=== PATIENT | male | born 1965 | race Caucasian/White ===

== ENCOUNTER 2017-02-08 09:48 | Emergency (ER) | payer OTHER ==
[2017-02-08 10:12] VITALS: TEMP 98.2; BMI 24.2
--- NOTE | 2017-02-08 10:22 | PDOC ---
History of Present Illness - General Chief Complaint: Headache Stated Complaint: HEAD PRESSURE Time Seen by Provider: 02/08/17 10:22 - History of Present Illness Initial Comments: 52 year old male with history of sinusitis presenting with rhinorrhea, cough, congestion, occipital headache and general lethargy for the past few days. He has no other medical problems and tried nyquil without relief. Denies fevers, chills, nausea, vomiting, diarrhea, urinary symptoms, or other issues. 02/08/17 10:38 Past History - Past Medical History Allergies/Adverse Reactions: Allergies Allergy/AdvReac Type Severity Reaction Status Date / Time No Known Allergies Allergy Verified 02/08/17 10:08 Home Medications: Ambulatory Orders NK [No Known Home Medication] 02/08/17 Other medical history: none - Suicide/Smoking/Psychosocial Hx Smoking History: Never smoked Have you smoked in the past 12 months: No Number of Cigarettes Smoked Daily: 3 Information on smoking cessation initiated: No 'Breaking Loose' booklet given: 03/01/14 Hx Alcohol Use: No Drug/Substance Use Hx: No Substance Use Type: None Review of Systems - Review of Systems Constitutional: No: Chills, Diaphoresis, Fever HEENTM: No: Blurred Vision, Recent change in vision Respiratory: Yes: Cough, Productive cough. No: Shortness of Breath, Wheezing Cardiac (ROS): No: Chest Pain, Irregular Heart Rate, Palpitations, Syncope ABD/GI: No: Constipated, Diarrhea, Nausea, Vomiting : No: Burning, Dysuria, Discharge, Frequency Integumentary: No: Bruising, Change in Color Neurological: Yes: Headache. No: Numbness *Physical Exam - Vital Signs Last Vital Signs Temp Pulse Resp BP Pulse Ox 98.2 F 71 18 131/82 100 02/08/17 10:02/08/17 10:09 02/08/17 10:02/08/17 10:02/08/17 10:09 - Physical Exam General Appearance: Yes: Nourished, Appropriately Dressed. No: Apparent Distress HEENT: positive: EOMI, RUBI, Normal Voice, Pharyngeal Erythema, Other (Sinus tenderness) Neck: positive: Tender, Trachea midline, Normal Thyroid, Supple. negative: Rigid Respiratory/Chest: positive: Chest Tender, Lungs Clear, Normal Breath Sounds. negative: Respiratory Distress, Accessory Muscle Use Cardiovascular: positive: Regular Rhythm, Regular Rate, S1, S2. negative: Edema , JVD, Murmur Gastrointestinal/Abdominal: positive: Normal Bowel Sounds, Flat, Soft. negative : Tender Musculoskeletal: positive: Normal Inspection Extremity: positive: Normal Inspection, Normal Range of Motion Integumentary: positive: Normal Color, Dry, Warm Neurologic: positive: Fully Oriented, Alert, Normal Mood/Affect Medical Decision Making - Medical Decision Making 52 year old male with upper respiratory symptoms. bBlood glucose WNL and patient's symptoms much better after 1 G tylenol PO. This is most likely a sinus traction headache secondary to a viral URI. Has no neurolgic signs or past medical history to suggest more concerning etiology. Will DC home. 02/08/17 11:56 02/08/17 11:57 *DC/Admit/Observation/Transfer Diagnosis at time of Disposition: Upper respiratory tract infection, Headache - Discharge Dispostion Disposition: HOME Admit: No - Patient Instructions Printed Discharge Instructions: DI for Viral Upper Respiratory Infection -- Adult, DI for Common Cold Additional Instructions: You were seen for headache, cough, and generally not feeling well for the last few days. We gave you a large dose of Tylenol and your symptoms improved. We believe you have a common cold. Please rest, eat food, and hydrate.
--- NOTE | 2017-02-08 10:25 | PDOC ---
Attending Attestation - Resident Resident Name: Gwendolyn Vega - ED Attending Attestation I have performed the following: I have examined & evaluated the patient, The case was reviewed & discussed with the resident, I agree w/resident's findings & plan, Exceptions are as noted - HPI HPI: 02/08/17 10:23 Headache - Physicial Exam PE: 02/08/17 10:23 Neurologically Intact/ NAD - Medical Decision Making 02/08/17 10:[address] Gwendolyn Vega's Assessment and Plan
[2017-02-08] MEDS ORDERED: ACETAMINOPHEN 500 MG TABLET (FP) PO ONE (10:43)
[2017-02-08] MEDS ORDERED: ACETAMINOPHEN 325 MG TABLET (FP) ONE (10:51)
[2017-02-08 12:15] VITALS: BP 126/72; PULSE 68
--- NOTE | 2017-02-08 13:50 | EKG ---
Test Reason : Blood Pressure : / mmHG Vent. Rate : 068 BPM Atrial Rate : 068 BPM P-R Int : 126 ms QRS Dur : 090 ms QT Int : 388 ms P-R-T Axes : 043 023 034 degrees QTc Int : 412 ms NORMAL SINUS RHYTHM NORMAL ECG WHEN COMPARED WITH ECG OF 12-OCT-2015 02:00, VENT. RATE HAS DECREASED BY 44 BPM Confirmed by ANDREINA LEMUS MD ([id number]) on 02/08/2017 1:50:30 PM Referred By: Confirmed By:ANDREINA LEMUS MD
== END 2017-02-08 12:13 | disposition home or self-care (01) ==
LOC: JER 09:48
DX: J06.9 Acute upper respiratory infection, unspecified (principal); R51 Headache
CPT/HCPCS: 93005; 93010; 99283-25

== ENCOUNTER 2017-10-13 15:30 | Emergency (ER) | payer OTHER ==
[2017-10-13 15:45] VITALS: BP 119/83; PULSE 99; TEMP 98.3; BMI 25.0
--- NOTE | 2017-10-13 15:46 | PDOC ---
Rapid Medical Evaluation Time Seen by Provider: 10/13/17 15:43 Medical Evaluation: Allergies Allergy/AdvReac Type Severity Reaction Status Date / Time No Known Allergies Allergy Verified 02/08/17 10:08 10/13/17 15:43 I have performed a brief in-person evaluation of this patient. The patient presents with a chief complaint of: RUE pain, no recent trauma but pulled something "heavy" 2 days ago. Took alleve w/ minimal relieve. No cp or sob. H/o HLD Pertinent physical exam findings:+ttp to R forearm w/ palpation. +pain w/ ROM of RUE I have ordered the following:nothing The patient will proceed to the ED for further evaluation. Discharge Disposition - Diagnosis Arm pain Qualifiers: Laterality: right Qualified Code(s): M79.601 - Pain in right arm - Referrals - Patient Instructions - Post Discharge Activity
--- NOTE | 2017-10-13 16:39 | PDOC ---
History of Present Illness - General Chief Complaint: Pain, Acute Stated Complaint: RT SHOULDER PAIN Time Seen by Provider: 10/13/17 15:43 - History of Present Illness Initial Comments: 52-year-old male presents for evaluation of right shoulder and neck pain 1 day. He describes this pain as achy and sharp exacerbated with motion relieved with rest with radiation down to his right arm. No prior problems with the neck or shoulder in the past. No comorbidities NO KNOWN DRUG ALLERGIES. 10/13/17 16:34 Past History - Past Medical History Allergies/Adverse Reactions: Allergies Allergy/AdvReac Type Severity Reaction Status Date / Time No Known Allergies Allergy Verified 10/13/17 15:45 Home Medications: Ambulatory Orders Cyclobenzaprine HCl [Flexeril 10 mg] 10 mg PO HS PRN #10 tablet 10/13/17 Methylprednisolone [Medrol Dose Checo] 4 mg PO ASDIR #21 tablet 10/13/17 COPD: No Hypercholesterolemia: Yes - Immunization History Immunization Up to Date: Yes - Suicide/Smoking/Psychosocial Hx Smoking History: Never smoked Have you smoked in the past 12 months: No Number of Cigarettes Smoked Daily: 3 Information on smoking cessation initiated: No 'Breaking Loose' booklet given: 03/01/14 Hx Alcohol Use: No Drug/Substance Use Hx: No Substance Use Type: None Review of Systems - Review of Systems Musculoskeletal: Yes: Joint Pain, Neck Pain All Other Systems: Reviewed and Negative *Physical Exam - Vital Signs Last Vital Signs Temp Pulse Resp BP Pulse Ox 98.3 F 99 H 20 119/83 99 10/13/17 15:37 10/13/17 15:37 10/13/17 15:37 10/13/17 15:37 10/13/17 15:37 - Physical Exam Comments: Right shoulder skin color and temperature within normal limits there is no tenderness. Range of motion is slightly limited with pain terminal ranges of external rotation and abduction. He is unable to tolerate impingement maneuvers are rotator cuff strength testing. Bilateral upper extremities is 5 out of 5 strength in thumb extension wrist flexion and extension. As well as bicep. Upper extremity compartments are soft and nontender. Spurling maneuver is positive on the left. No gross sensorimotor deficits. He is neurovascularly intact. 10/13/17 16:35 *DC/Admit/Observation/Transfer Diagnosis at time of Disposition: Cervical radiculitis, Shoulder impingement syndrome Arm pain Qualifiers: Laterality: right Qualified Code(s): M79.601 - Pain in right arm - Discharge Dispostion Disposition: HOME Condition at time of disposition: Stable - Prescriptions Prescriptions: Cyclobenzaprine HCl [Flexeril 10 mg] 10 mg PO HS PRN #10 tablet PRN Reason: Muscle Spasms Methylprednisolone [Medrol Dose Checo] 4 mg PO ASDIR #21 tablet - Referrals Referrals: Randolph Quintana MD [Staff Physician] - - Patient Instructions Printed Discharge Instructions: Shoulder Tendinopathy, DI for Cervical Radiculopathy Additional Instructions: You have a right shoulder impingement and cervical radiculopathy. Do not take any anti-inflammatories such as Naprosyn Advil Motrin or Aleve. I prescribed few a Medrol Dosepak which she may take as directed. The instructions were on the back of the pack. As well as a muscle relaxer. Follow-up with orthopedic surgery in the next 1-2 days. Return to the emergency room symptoms worsen or go unresolved prior to follow-up with orthopedic surgery. - Post Discharge Activity
== END 2017-10-13 16:47 | disposition home or self-care (01) ==
LOC: JERFT 15:30
DX: M54.12 Radiculopathy, cervical region (principal); M75.41 Impingement syndrome of right shoulder; M79.601 Pain in right arm; E78.00 Pure hypercholesterolemia, unspecified
CPT/HCPCS: 99281-25

== ENCOUNTER 2017-12-09 20:49 | Emergency (ER) | payer OTHER ==
[2017-12-09 20:55] VITALS: BP 152/96; PULSE 82; BMI 24.2
[2017-12-09] MEDS ORDERED: FAMOTIDINE 20 MG/50 ML IVPB 20 MG/50 ML MG IVPB ONE ×2 (20:56→21:20)
[2017-12-09] MEDS ORDERED: ASPIRIN 81 MG CHEWABLE TABLETS PO ONE (20:56)
--- NOTE | 2017-12-09 20:56 | PDOC ---
Rapid Medical Evaluation Chief Complaint: Chest Pain Time Seen by Provider: 12/09/17 20:51 Medical Evaluation: Allergies Allergy/AdvReac Type Severity Reaction Status Date / Time No Known Allergies Allergy Verified 10/13/17 15:45 12/09/17 20:51 I have performed a brief in-person evaluation of this patient. The patient presents with a chief complaint of: "took an antibiotic they gave me for my stomach" and now feels chest tightness, SOB, denies rashes, felt "tightness in throat, coughing, nausea" Pertinent physical exam findings: well appearing, no swelling to face, mouth, tongue, lips, neck, patient persistently belching I have ordered the following: EKG, labs, Benadryl, Pepcid The patient will proceed to the ED for further evaluation. Discharge Disposition - Diagnosis Chest pain - Referrals - Patient Instructions - Post Discharge Activity
[2017-12-09] MEDS ORDERED: ASPIRIN 81 MG CHEWABLE TABLETS ONE (21:24)
[2017-12-09 21:25] LABS: EOS % 3.9 % (0-4.5); HEMATOCRIT 39.9 % (35.4-49); HEMOGLOBIN 13.8 GM/dL (11.7-16.9); LYMPH % 31.5 % (8-40); MCH 29.7 pg (25.7-33.7); MCHC 34.5 g/dl (32.0-35.9); MEAN CELL VOLUME 86.3 fl (80-96); MEAN PLT VOLUME 8.1 fl (7.5-11.1); NEUT % 56.6 % (42.8-82.8); PLATELET COUNT 226 K/MM3 (134-434); RBC 4.62 M/mm3 (4.00-5.60); RDW 13.9 % (11.9-15.9); WHITE BLOOD COUNT 9.3 K/mm3 (4.0-10.0)
[2017-12-09 21:57] LABS: ALBUMIN 4.2 g/dl (3.4-5.0); ANION GAP 11 (8-16); BLOOD UREA NITROGEN 18 mg/dL (7-18); CALCIUM 8.8 mg/dL (8.5-10.1); CHLORIDE 107 mmol/L (98-107); CO2 24 mmol/L (21-32); CREATININE 0.9 mg/dL (0.7-1.3); GLUCOSE,RANDOM 108 mg/dL (74-106); MAGNESIUM 2.2 mg/dL (1.8-2.4); POTASSIUM 3.4 mmol/L (3.5-5.1); SGOT/AST 24 U/L (15-37); SGPT/ALT 43 U/L (12-78); SODIUM 142 mmol/L (136-145)
[2017-12-09 22:01] LABS: ALK PHOS 73 U/L (45-117); BILIRUBIN,TOTAL 0.5 mg/dL (0.2-1.0); TOT PROT 7.1 g/dl (6.4-8.2)
[2017-12-09 22:10] LABS: INR 1.04 (0.82-1.09); PROTHROMBIN TIME (PATIENT) 11.7 SEC (9.7-13.0)
--- NOTE | 2017-12-09 22:13 | PDOC ---
History of Present Illness - General Chief Complaint: Chest Pain Stated Complaint: CHEST PAIN Time Seen by Provider: 12/09/17 20:51 History Source: Patient Exam Limitations: No Limitations - History of Present Illness Initial Comments: 12/09/17 22:08 The patient is a 52M with a PMH of HLD who presents to the ER with complaints of gas and shortness of breath. The patient states that he took an antibiotic for his stomach that he "hasn't taken in a while." 2 hours after, he notes that he felt pressure in his epigastric abdomen and gas. He states that he began to burp and have some mild nausea. He denies CP, fever, chills, abdominal pain, dysuria, hematuria, cough. Past History - Past Medical History Allergies/Adverse Reactions: Allergies Allergy/AdvReac Type Severity Reaction Status Date / Time No Known Allergies Allergy Verified 12/09/17 20:55 COPD: No GI Disorders: Yes (gastritis) Hypercholesterolemia: Yes - Immunization History Immunization Up to Date: Yes - Suicide/Smoking/Psychosocial Hx Smoking History: Current some day smoker Have you smoked in the past 12 months: Yes Number of Cigarettes Smoked Daily: 2 Information on smoking cessation initiated: No 'Breaking Loose' booklet given: 03/01/14 Hx Alcohol Use: Yes (social) Drug/Substance Use Hx: No Substance Use Type: None Review of Systems - Review of Systems Able to Perform ROS?: Yes Comments:: 12/09/17 22:12 GENERAL/CONSTITUTIONAL: No fever or chills. No weakness. HEAD, EYES, EARS, NOSE AND THROAT: No change in vision. No ear pain or discharge. No sore throat. CARDIOVASCULAR: No chest pain, palpitations, or lightheadedness. RESPIRATORY: Positive for shortness of breath. No cough, wheezing, or hemoptysis. GASTROINTESTINAL: Positive for gas and mild nausea. No vomiting, diarrhea, constipation, or abdominal pain. GENITOURINARY: No dysuria, frequency, hematuria, or change in urination. MUSCULOSKELETAL: No joint or muscle swelling or pain. No neck or back pain. SKIN: No rash or lesions. NEUROLOGIC: No headache, numbness, tingling, weakness, loss of consciousness, or change in strength/sensation. ENDOCRINE: No increased thirst. No abnormal weight change. HEMATOLOGIC/LYMPHATIC: No anemia, easy bleeding, or history of blood clots. ALLERGIC/IMMUNOLOGIC: No hives or skin allergy. Is the patient limited Bangladeshi proficient: No *Physical Exam - Vital Signs Last Vital Signs Temp Pulse Resp BP Pulse Ox 82 17 152/96 100 12/09/17 20:51 12/09/17 20:51 12/09/17 20:51 12/09/17 20:51 - Physical Exam Comments: 12/09/17 22:13 GENERAL: Well developed, well nourished. Awake and alert. No acute distress. HEENT: Normocephalic, atraumatic. Hearing grossly normal. Moist mucous membranes. PERRLA, EOMI. No conjunctival pallor. Sclera are non-icteric. NECK: Supple. Full ROM. No JVD. CARDIOVASCULAR: Regular rate and rhythm. No murmurs, rubs, or gallops. Distal pulses are 2+ and symmetric. PULMONARY: No evidence of respiratory distress. Lungs clear to auscultation bilaterally. No wheezing, rales or rhonchi. ABDOMINAL: Soft. TTP over RUQ. Positive Haile's sign. Non-distended. No rebound or guarding. GENITOURINARY: No CVA tenderness bilaterally. MUSCULOSKELETAL: Normal range of motion at all joints. No bony deformities or tenderness. EXTREMITIES: No cyanosis. No clubbing. No edema. No calf tenderness or swelling. SKIN: Warm and dry. Normal capillary refill. No rashes. No jaundice. NEUROLOGICAL: Alert, awake, appropriate. Cranial nerves 2-12 intact. Normal speech. Gait is normal without ataxia. PSYCHIATRIC: Cooperative. Good eye contact. Appropriate mood and affect. Heart Score/ECG Review #1 General ECG Interpretation: Sinus Rhythm, Normal Rate, Normal Intervals, No acute ischemic changes ED Treatment Course - LABORATORY CBC & Chemistry Diagram: 12/09/17 21:13 12/09/17 21:13 - ADDITIONAL ORDERS Additional order review: Laboratory Results 12/09/17 12/09/17 21:13 21:13 Sodium 142 Potassium 3.4 L Chloride 107 Carbon Dioxide 24 Anion Gap 11 BUN 18 Creatinine 0.9 Creat Clearance w eGFR > 60 Random Glucose 108 H Calcium 8.8 Magnesium 2.2 Total Bilirubin 0.5 AST 24 D ALT 43 D Alkaline Phosphatase 73 Creatine Kinase 136 Troponin I < 0.02 Total Protein 7.1 Albumin 4.2 Lipase 135 12/09/17 21:13 RBC 4.62 MCV 86.3 MCHC 34.5 RDW 13.9 MPV 8.1 Neutrophils % 56.6 D Lymphocytes % 31.5 D Monocytes % 7.0 Eosinophils % 3.9 D Basophils % 1.0 D - RADIOLOGY Radiology Studies Ordered: Category Date Time Status ABDOMEN US -LIMITED [US] Stat Ultrasound 12/09/17 21:06 Ordered - Medications Given in the ED: ED Medications Discontinued Medications Generic Name Dose Route Start Last Admin Trade Name Aisha PRN Reason Stop Dose Admin Aspirin 162 mg 12/09/17 20:56 12/09/17 21:26 Asa - PO 12/09/17 20:57 162 mg ONCE ONE Administration Diphenhydramine HCl 25 mg 12/09/17 20:56 12/09/17 21:23 Benadryl Injection - IVPUSH 12/09/17 20:57 25 mg ONCE ONE Administration Famotidine/Sodium Chloride 20 mg in 50 mls @ 100 mls/hr 12/09/17 20:56 21:23 Pepcid 20 Mg Premixed Ivpb - IVPB 12/09/17 21:25 100 mls/hr ONCE ONE Administration Medical Decision Making - Medical Decision Making 12/09/17 23:26 The patient is a 52M with a PMH of HLD who presents to the ER with complaints of epigastric gas and SOB. CBC, CMP, trop, and EKG WNL. Will repeat trop at 0015 in the morning to ensure no ACS. This is an atypical presentation for ACS. On reassessment, pt states he feels better. Pending repeat trop. 12/10/17 00:44 Pt states he feels better on reevaluation. Has a nontender abdomen. RUQ US negative. Repeat trop pending. Pt signed out to Dr. Vega. *DC/Admit/Observation/Transfer Diagnosis at time of Disposition: Chest pain - Referrals - Patient Instructions - Post Discharge Activity
--- NOTE | 2017-12-09 23:11 | PDOC ---
Attending Attestation - HPI HPI: 12/09/17 23:15 The patient is a 52 year old male, with a significant PMH of hyperlipidemia, who presents to the emergency department with bloating/gas and shortness of breath. The patient states he took an antibiotic for his stomach earlier today around 4:30 pm and 2 hours after began to experience the bloating/gas sensation in the epigastric region. The patient also endorses nausea without vomiting. The patient denies chest pain, diaphoresis, lightheadedness, headache and dizziness. Denies fever, chills, vomit, diarrhea and constipation. Denies dysuria, frequency, urgency and hematuria. Allergies: NKA - Physicial Exam PE: 12/09/17 23:16 GENERAL: Well-appearing, well-nourished. No apparent distress. HEENT: Normocephalic, atraumatic. PERRL, EOM intact. CARDIOVASCULAR: Normal S1, S2. Regular rate and rhythm. PULMONARY: Clear to auscultation bilaterally. ABDOMEN: (+) Right upper quadrant tenderness. (+) Haile's sign. No rebound or guarding. Soft, non-distended. EXTREMITIES: Normal ROM in all four extremities. No gross deformities. SKIN: Warm, dry. No rash NEUROLOGICAL: No focal neurological deficits. <Donaldo Hunter - Last Filed: 12/09/17 23:15> - Resident Resident Name: Fran Murphy - ED Attending Attestation I have performed the following: I have examined & evaluated the patient, The case was reviewed & discussed with the resident, I agree w/resident's findings & plan, Exceptions are as noted - Medical Decision Making 12/10/17 01:37 Pt treated and released. <Luis Armando Joseph - Last Filed: 12/10/17 01:40> Discharge Disposition - Discharge Dispostion Decision to Admit order: No <Luis Armando Joseph - Last Filed: 12/10/17 01:40> - Diagnosis Chest pain - Discharge Dispostion Disposition: HOME Condition at time of disposition: Stable - Referrals Referrals: Adrián Izaguirre MD [Staff Physician] - Tushar Becerril MD [Staff Physician] - - Patient Instructions Printed Discharge Instructions: DI for Chest Pain Additional Instructions: Follow up with the various doctor referred to you if symptoms continue. Return if any problems. - Post Discharge Activity Work/School Note: Back to Work Attestations - Attestations 12/09/17 23:17 Documentation prepared by Donaldo Hunter, acting as director of medical education for Luis Armando Joseph DO. <Donaldo Hunter - Last Filed: 12/09/17 23:15>
--- NOTE | 2017-12-10 01:46 | PDOC ---
*Physical Exam - Vital Signs Last Vital Signs Temp Pulse Resp BP Pulse Ox 82 17 152/96 100 12/09/17 20:51 12/09/17 20:51 12/09/17 20:51 12/09/17 20:51 ED Treatment Course - LABORATORY CBC & Chemistry Diagram: 12/09/17 21:13 12/09/17 21:13 - ADDITIONAL ORDERS Additional order review: Laboratory Results 12/10/17 12/09/17 12/09/17 00:26 21:13 21:13 PT with INR INR Sodium 142 Potassium 3.4 L Chloride 107 Carbon Dioxide 24 Anion Gap 11 BUN 18 Creatinine 0.9 Creat Clearance w eGFR > 60 Random Glucose 108 H Calcium 8.8 Magnesium 2.2 Total Bilirubin 0.5 AST 24 D ALT 43 D Alkaline Phosphatase 73 Creatine Kinase 136 Troponin I 0.02 < 0.02 Total Protein 7.1 Albumin 4.2 Lipase 135 12/09/17 21:13 PT with INR 11.70 INR 1.04 Sodium Potassium Chloride Carbon Dioxide Anion Gap BUN Creatinine Creat Clearance w eGFR Random Glucose Calcium Magnesium Total Bilirubin AST ALT Alkaline Phosphatase Creatine Kinase Troponin I Total Protein Albumin Lipase 12/09/17 21:13 RBC 4.62 MCV 86.3 MCHC 34.5 RDW 13.9 MPV 8.1 Neutrophils % 56.6 D Lymphocytes % 31.5 D Monocytes % 7.0 Eosinophils % 3.9 D Basophils % 1.0 D - Medications Given in the ED: ED Medications Discontinued Medications Generic Name Dose Route Start Last Admin Trade Name Freq PRN Reason Stop Dose Admin Aspirin 162 mg 12/09/17 20:56 12/09/17 21:26 Asa - PO 12/09/17 20:57 162 mg ONCE ONE Administration Diphenhydramine HCl 25 mg 12/09/17 20:56 12/09/17 21:23 Benadryl Injection - IVPUSH 12/09/17 20:57 25 mg ONCE ONE Administration Famotidine/Sodium Chloride 20 mg in 50 mls @ 100 mls/hr 12/09/17 20:56 21:23 Pepcid 20 Mg Premixed Ivpb - IVPB 12/09/17 21:25 100 mls/hr ONCE ONE Administration Medical Decision Making - Medical Decision Making 52 year old male wsigned out to me pending second troponin for low risk chest pain. @nd troponin negative so patient discharged with follow up instructions. 12/10/17 01:45 *DC/Admit/Observation/Transfer Diagnosis at time of Disposition: Chest pain Qualifiers: Chest pain type: unspecified Qualified Code(s): R07.9 - Chest pain, unspecified - Discharge Dispostion Disposition: HOME Condition at time of disposition: Stable - Referrals Referrals: Adrián Izaguirre MD [Staff Physician] - Tushar Becerril MD [Staff Physician] - - Patient Instructions Printed Discharge Instructions: DI for Chest Pain Additional Instructions: Follow up with the various doctor referred to you if symptoms continue. Return if any problems. - Post Discharge Activity Forms/Work/School Notes: Back to Work
--- NOTE | 2017-12-10 12:05 | EKG ---
Test Reason : Blood Pressure : / mmHG Vent. Rate : 072 BPM Atrial Rate : 072 BPM P-R Int : 142 ms QRS Dur : 094 ms QT Int : 364 ms P-R-T Axes : 059 044 064 degrees QTc Int : 398 ms NORMAL SINUS RHYTHM NORMAL ECG WHEN COMPARED WITH ECG OF 08-FEB-2017 10:38, NO SIGNIFICANT CHANGE WAS FOUND Confirmed by YOLANDE AGUIRRE MD ([id number]) on 12/10/2017 12:05:34 PM Referred By: Confirmed By:YOLANDE AGUIRRE MD
== END 2017-12-10 01:42 | disposition home or self-care (01) ==
LOC: JER 20:49
PROC: 3E033GC Introduction of Other Therapeutic Substance into Peripheral Vein, Percutaneous Approach (ICD-10-PCS; principal; 2017-12-09)
PROC: 3E033GC Introduction of Other Therapeutic Substance into Peripheral Vein, Percutaneous Approach (ICD-10-PCS; 2017-12-09)
DX: R07.9 Chest pain, unspecified (principal); E78.5 Hyperlipidemia, unspecified; Z87.19 Personal history of other diseases of the digestive system
CPT/HCPCS: 36415; 71046-TC-FY; 76705-TC; 80053; 82550; 83690; 83735; 84484; 85025; 85610; 93005; 93010; 99282-25

== ENCOUNTER 2018-08-07 22:01 | Emergency (ER) | payer OTHER ==
[2018-08-07 22:23] VITALS: BP 128/78; PULSE 83; TEMP 98.2; BMI 27.4
--- NOTE | 2018-08-07 22:44 | PDOC ---
Attending Attestation - HPI HPI: 08/07/18 23:08 The patient is a 53 year old male, with a significant past medical history of HLD and recent diagnosis of H. pylori, who presents to the emergency department with, stomach bloating. Patient notes eating a wagner egg and cheese this morning , fish for lunch then just prior to the onset had multiple hot dogs. Patient took another dosage of his Lipitor then began feeling nauseous, diaphoretic, and bloated prompting his arrival to the ED. He denies any recent fevers, chills, headache or dizziness. He denies any recent vomit, diarrhea or constipation. He denies any recent chest pain or shortness of breath. He denies any recent dysuria, frequency, urgency or hematuria. Allergies: NKDA Primary Care Physician: Dr. Soliz <Jude Torres - Last Filed: 08/07/18 23:08> - Resident Resident Name: Bridgette Duran - ED Attending Attestation I have performed the following: I have examined & evaluated the patient, The case was reviewed & discussed with the resident, I agree w/resident's findings & plan, Exceptions are as noted - Physicial Exam PE: GENERAL: Awake, alert, and fully oriented, in no acute distress HEAD: No signs of trauma EYES: PERRLA, EOMI, sclera anicteric, conjunctiva clear ENT: Auricles normal inspection, hearing grossly normal, nares patent, oropharynx clear without exudates. Moist mucosa NECK: Normal ROM, supple, no lymphadenopathy, JVD, or masses LUNGS: Breath sounds equal, clear to auscultation bilaterally. No wheezes, and no crackles HEART: Regular rate and rhythm, normal S1 and S2, no murmurs, rubs or gallops ABDOMEN: Soft, nontender, normoactive bowel sounds. No guarding, no rebound. No masses EXTREMITIES: Normal range of motion, no edema. No clubbing or cyanosis. No cords, erythema, or tenderness NEUROLOGICAL: Cranial nerves II through XII grossly intact. Normal speech, normal gait. Motor and sensation intact SKIN: Warm, Dry, normal turgor, no rashes or lesions noted. - Medical Decision Making EKG wnl. Patient expressed concern it was related to taking a possible extra dose of lipitor, however, it is more likely related to the food he ate. Atypical for ACS. Asymptomatic in ED. <Lahsell Tapia - Last Filed: 08/07/18 23:54> Attestations - Attestations 08/07/18 23:08 Documentation prepared by Jude Torres, acting as medical program specialist for Lashell Tapia MD. <Jude Torres - Last Filed: 08/07/18 23:08>
--- NOTE | 2018-08-07 22:55 | PDOC ---
History of Present Illness - General Chief Complaint: Nausea Stated Complaint: SOB/NAUSEA Time Seen by Provider: 08/07/18 22:21 - History of Present Illness Initial Comments: 08/07/18 22:49 Patient is a 53 y/o male with a history of hyperlipidemia who presents for bloating. Patient reports he had two hot dogs for dinner, and then because he couldn't remember if he took his morning lipitor he took a second one. Patient states after taking the second lipitor he beagn to feel bloated and sweaty. He felt like had had to vomit but was unable to. For breakfast patient had wagner and eggs and for lunch patient had fish from a fish market. His girlfriend had the same meals but without any feelings of nausea or vomiting. Patient also recently diagnosed with H pylori and is currently on triple therapy. Patient states the diaphoresis has resolved and he does not feel as nauseous anymore. Patient denies fever, chills, diarrhea, constipation, chest pain, or chest pressure. Last bowel movement normal at 4 pm. F/u EKG 08/07/18 23:21 EKG WNL, [place] for nausea, DC Past History - Past Medical History Allergies/Adverse Reactions: Allergies Allergy/AdvReac Type Severity Reaction Status Date / Time No Known Allergies Allergy Verified 08/07/18 22:22 Home Medications: Ambulatory Orders NK [No Known Home Medication] 12/10/17 COPD: No GI Disorders: Yes (gastritis) Hypercholesterolemia: Yes - Immunization History Immunization Up to Date: Yes - Suicide/Smoking/Psychosocial Hx Smoking History: Never smoked Have you smoked in the past 12 months: No Number of Cigarettes Smoked Daily: 2 Information on smoking cessation initiated: No 'Breaking Loose' booklet given: 03/01/14 Hx Alcohol Use: No Drug/Substance Use Hx: No Substance Use Type: None Review of Systems - Review of Systems Constitutional: No: Chills, Fever, Weakness Respiratory: No: Cough, Shortness of Breath Cardiac (ROS): No: Chest Pain ABD/GI: Yes: Nausea. No: Constipated, Diarrhea, Vomiting *Physical Exam - Vital Signs Last Vital Signs Temp Pulse Resp BP Pulse Ox 98.2 F 83 20 128/78 99 08/07/18 22:17 08/07/18 22:17 08/07/18 22:17 08/07/18 22:17 08/07/18 22:17 - Physical Exam Comments: 08/07/18 22:53 GENERAL: A&O x3, no acute distress ENT: moist mucus membranes, no erythema in pharynx HEART: RRR, no murmurs, rubs, or gallops LUNGS: CTAL B/L ABD: soft, non distended, non tender EXTREMITIES: no pitting edema SKIN: no rashes or lesions noted Moderate Sedation - Procedure Monitoring Vital Signs: Procedure Monitoring Vital Signs Temperature 98.2 F 08/07/18 22:17 Pulse Rate 83 08/07/18 22:17 Respiratory Rate 20 08/07/18 22:17 Blood Pressure 128/78 08/07/18 22:17 O2 Sat by Pulse Oximetry (%) 99 08/07/18 22:17 *DC/Admit/Observation/Transfer Diagnosis at time of Disposition: Nausea - Discharge Dispostion Disposition: HOME Condition at time of disposition: Good - Referrals Referrals: Stephanie Dale MD [Primary Care Provider] - Willow Mariano [Other] - Patient Instructions Printed Discharge Instructions: Nausea (Alternative Therapy) Additional Instructions: You came in for feeling nauseous. We gave you some medication to help with your nausea. We also did an EKG of your heart and shows it is functioning properly. Please make a follow up appointment with your Primary Care Physician. Also make an appointment with the [employer] to monitor your eating habits. Please return to the Emergency Department if you have any worsening of symptoms , vomiting, diarrhea, chest pain, chest pressure, or shortness of breath. - Post Discharge Activity
[2018-08-07] MEDS ORDERED: ONDANSETRON 8 MG TABLET (FP) PO ONE ×2 (23:16→23:21)
--- NOTE | 2018-08-08 22:48 | EKG ---
Test Reason : Blood Pressure : / mmHG Vent. Rate : 068 BPM Atrial Rate : 068 BPM P-R Int : 138 ms QRS Dur : 092 ms QT Int : 380 ms P-R-T Axes : 054 029 042 degrees QTc Int : 404 ms NORMAL SINUS RHYTHM NORMAL ECG WHEN COMPARED WITH ECG OF 09-DEC-2017 20:55, NO SIGNIFICANT CHANGE WAS FOUND Confirmed by ANDREINA LEMUS MD ([id number]) on 08/08/2018 10:48:45 PM Referred By: Confirmed By:ANDREINA LEMUS MD
== END 2018-08-07 23:35 | disposition home or self-care (01) ==
LOC: JER 22:01
DX: R11.0 Nausea (principal)
CPT/HCPCS: 93005; 93010; 99282-25

== ENCOUNTER 2020-07-24 17:12 | Emergency (ER) | payer OTHER ==
[2020-07-24 17:31] VITALS: BMI 24.8
[2020-07-24] MEDS ORDERED: CALAMINE 8% TOPICAL LOTION 177 ML BOTTLE TP ONE (18:10)
[2020-07-24 19:49] VITALS: BP 140/80; PULSE 86
== END 2020-07-24 19:54 | disposition home or self-care (01) ==
LOC: JER 17:12
DX: L42 Pityriasis rosea (principal); M54.9 Dorsalgia, unspecified
CPT/HCPCS: 36415; 71046-TC-FY; 71101-TC-LT-FY; 86780; 93005; 93010; 99284-25

== ENCOUNTER 2020-12-02 17:44 | Emergency (ER) | payer OTHER ==
[2020-12-02 18:00] VITALS: BP 145/85; PULSE 75; TEMP 97.9; BMI 24.7
== END 2020-12-02 18:56 | disposition home or self-care (01) ==
LOC: JERFT 17:44
DX: M67.431 Ganglion, right wrist (principal)
CPT/HCPCS: 73110-TC-RT-FY; 99283-25

== ENCOUNTER 2021-10-21 15:33 | Emergency (ER) | payer OTHER ==
[2021-10-21 15:48] VITALS: BP 109/80; PULSE 72; TEMP 98.5; BMI 25.0
[2021-10-21] MEDS ORDERED: ASPIRIN 81 MG CHEWABLE TABLETS PO ONE (17:16)
[2021-10-21] MEDS ORDERED: SODIUM CHLORIDE 1,000 ML IV STA (17:16)
[2021-10-21] MEDS ORDERED: ASPIRIN 81 MG CHEWABLE TABLETS ONE (17:53)
[2021-10-21 21:18] LABS: BASO % 0.8 % (0-2.0); EOS % 3.1 % (0-4.5); HEMATOCRIT 43.1 % (35.4-49); HEMOGLOBIN 14.8 GM/dL (11.7-16.9); LYMPH % 27.3 % (8-40); MCH 29.6 pg (25.7-33.7); MCHC 34.3 g/dl (32.0-35.9); MEAN CELL VOLUME 86.4 fl (80-96); MEAN PLT VOLUME 8.2 fl (7.5-11.1); MONO % 9.1 % (3.8-10.2); NEUT % 59.7 % (42.8-82.8); PLATELET COUNT 246 10^3/uL (134-434); RBC 4.99 M/mm3 (4.00-5.60); WHITE BLOOD COUNT 7.5 K/mm3 (4.0-10.0)
[2021-10-21 21:19] LABS: ALBUMIN 4.5 g/dl (3.4-5.0); BLOOD UREA NITROGEN 17.7 mg/dL (7-18); CALCIUM 9.3 mg/dL (8.5-10.1); INR 1.06 (0.83-1.09); MAGNESIUM 2.7 mg/dL (1.8-2.4); PROTHROMBIN TIME (PATIENT) 12.2 SEC (9.7-13.0)
[2021-10-21 21:22] LABS: CREATININE 0.8 mg/dL (0.55-1.3)
[2021-10-21 21:24] LABS: BILIRUBIN,TOTAL 0.4 mg/dL (0.2-1); TOT PROT 7.7 g/dl (6.4-8.2)
== END 2021-10-21 21:46 | disposition home or self-care (01) ==
LOC: JERFT 15:33 → JER 15:33 → JERFT 21:46
DX: R07.89 Other chest pain (principal)
CPT/HCPCS: 36415; 71046-TC-FY; 80053; 83735; 84484; 85025; 85610; 85730; 93005; 93010; 99285-25

== ENCOUNTER 2023-04-09 05:58 | Emergency (ER) | payer OTHER ==
[2023-04-09 06:18] VITALS: BP 150/96; PULSE 66; RESP 18; TEMP 98.4; BMI 25.0
[2023-04-09 08:27] LABS: URINE APPEARANCE CLEAR; URINE BILIRUBIN NEGATIVE (NEGATIVE); URINE COLOR YELLOW; URINE GLUCOSE (UA) NEGATIVE (NEGATIVE); URINE KETONE NEGATIVE (NEGATIVE)
[2023-04-09 08:28] LABS: PH,URINE 5.5 (5.0-8.0); URINE LEUK ESTERASE NEGATIVE (NEGATIVE); URINE NITRITE NEGATIVE (NEGATIVE); URINE PROTEIN NEGATIVE (NEGATIVE); URINE UROBILINOGEN 0.2 mg/dL (0.2-1.0)
== END 2023-04-09 09:15 | disposition home or self-care (01) ==
LOC: JER 05:58
DX: N48.89 Other specified disorders of penis (principal)
CPT/HCPCS: 36415; 81003; 87086; 87491; 87591; 87661; 99283-25